=== PATIENT | female | born 1945 | race Caucasian/White ===

== ENCOUNTER 2022-03-16 13:16 | Inpatient (IN) | payer MEDICARE, OTHER ==
[~2022-03-16] VITALS: Ht 166.4 cm; Wt 95.5 kg
[~2022-03-16 13:16] MED LIST: ATOR20TA PO; LISI40TA13 PO; METF500T PO
[2022-03-16 14:42] LABS: BASOPHILS % (AUTO) 0.4 % (0-1); EOSINOPHILS % (AUTO) 0.1 % (0-6); HEMATOCRIT 38.6 % (35.0-45.0); MEAN CORPUSCULAR HEMOGLOBIN 30.4 PG (27.0-31.0); MEAN CORPUSCULAR HGB CONC 33.6 g/dL (33.0-36.5); MEAN CORPUSCULAR VOLUME 90.5 FL (78-98); MEAN PLATELET VOLUME 8.6 FL (7.4-10.4); MONOCYTES # (AUTO) 0.4 X10'3 (0-0.9); MONOCYTES % (AUTO) 8.5 % (2-12); NEUTROPHILS # (AUTO) 3.6 X10'3 (1.8-7.7); PLATELET COUNT 227 X10'3 (140-440); RED BLOOD COUNT 4.27 X10'6 (4.20-5.60); RED CELL DISTRIBUTION WIDTH 13.8 % (11.5-14.5)
[2022-03-16] MEDS ORDERED: dexamethasone sod phosphate 10mg/ml inj IV STA (14:48)
[2022-03-16] MEDS ORDERED: normal saline 1000ML IV soln IVB ONE (14:50)
[2022-03-16] MEDS ORDERED: ondansetron/PF 4mg/2ml inj IV ONE (14:50)
[2022-03-16] MEDS ORDERED: diazepam inj 5 MG/ML inj. IV ONE (14:50)
[2022-03-16 14:53] LABS: ALANINE AMINOTRANSFERASE 19 U/L (12-78); ALBUMIN 3.3 G/DL (3.4-5.0); ALBUMIN/GLOBULIN RATIO 0.8 (1.1-1.5); ALKALINE PHOSPHATASE 90 IU/L (46-116); ANION GAP 11 (8-16); ASPARTATE AMINO TRANSFERASE 21 U/L (10-37); BLOOD UREA NITROGEN 22 MG/DL (7-18); BUN/CREATININE RATIO 14.5 (6.6-38.0); CALCIUM 8.8 MG/DL (8.5-10.1); CHLORIDE 104 MMOL/L (99-107); CREATININE 1.52 MG/DL (0.40-0.90); GLUCOSE 170 MG/DL (70-104); POTASSIUM 3.8 MMOL/L (3.5-5.1); SODIUM 141 MMOL/L (135-145); TOTAL CARBON DIOXIDE 26.5 MMOL/L (24-32); TOTAL PROTEIN 7.3 G/DL (6.4-8.2); eGFR 33 ML/MIN
[2022-03-16 16:01] LABS: CLARITY,URINE CLEAR (Clear); COLOR,URINE YELLOW (Yellow); GLUCOSE, URINE NEGATIVE (Neg); KETONES,URINE NEGATIVE (Neg); LEUKOCYTE ESTERASE ,URINE NEGATIVE (Neg); NITRITES, URINE NEGATIVE (Neg); OCCULT BLOOD,URINE TRACE-LYSED (Neg); PROTEIN,URINE NEGATIVE (Neg); UROBILINOGEN,URINE 0.2 E.U/dL (0.2-1.0)
[2022-03-16 16:04] LABS: UA COLLECTION TYPE CLN CATCH MIDSTREAM
[2022-03-16] MEDS ORDERED: aspirin 81mg tab.chew PO ONE (16:10)
[2022-03-16 16:13] LABS: MUCUS STRANDS FEW /LPF (Neg); SQUAMOUS EPITHELIAL CELL,UR FEW /LPF (FEW)
[2022-03-16 16:16] LABS: BACTERIA,URINE FEW /HPF (Neg); RBC,URINE 0-2 /HPF (0-2); WBC,URINE 0-4 /HPF (0-4)
[2022-03-16] MEDS ORDERED: magnesium hydroxide 30ml (MOM) UD suspension PO PRN (16:30)
[2022-03-16] MEDS ORDERED: acetaminophen 325mg tablet PO PRN ×2 (16:30)
[2022-03-16] MEDS ORDERED: magnesium 4gm in 100ml NS 100 ML IV PRN (16:30)
[2022-03-16] MEDS ORDERED: magnesium 2GM in 50ml NS 50 ML IV PRN (16:30)
[2022-03-16] MEDS ORDERED: PERFLUTREN PROTEIN-A MICROSPHR (Optison) 0.22 MG/ML 3ML VIAL IV ONE (16:30)
[2022-03-16] MEDS ORDERED: HYDROcodone/acetaminophen 10/325mg tab PO PRN (16:30)
[2022-03-16] MEDS ORDERED: POTASSIUM BICARB 20meq eff tab 20 MEQ TABLET.EFF PO PRN ×2 (16:30)
[2022-03-16] MEDS ORDERED: bisacodyl 10mg suppository rectal RC PRN (16:30)
[2022-03-16] MEDS ORDERED: meclizine 12.5mg tablet PO PRN (16:30)
[2022-03-16] MEDS ORDERED: HYDROcodone/acetaminophen 5mg/325mg tablet PO PRN (16:30)
[2022-03-16] MEDS ORDERED: mag hydrox/Alum hydrox/simeth 30ml oral suspension PO PRN (16:30)
[2022-03-16] MEDS ORDERED: ondansetron/PF 4mg/2ml inj IV PRN (16:30)
[2022-03-16] MEDS ORDERED: potassium CL 10mEq/100ml bag 100 ML IV PRN (16:30)
[2022-03-16] MEDS ORDERED: acetaminophen 650mg rectal suppository RC PRN (16:30)
[2022-03-16] MEDS ORDERED: ondansetron 4mg rapidly disintigrating tab PO PRN (16:30)
--- NOTE | 2022-03-16 16:53 | NUR ---
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
[2022-03-16 17:04] LABS: HEMOGLOBIN A1C 7.6 % (4.5-6.2)
[2022-03-16 17:14] LABS: MAGNESIUM 1.4 MG/DL (1.5-2.4)
[2022-03-16] MEDS ORDERED: NO HOME MEDS (17:37)
[2022-03-16] MEDS: sodium chloride 0.45% 1,000 ML IV SCH (17:48)
[2022-03-16] MEDS: docusate sod 100mg capsule PO SCH (20:00)
[2022-03-16] MEDS: K and/or MAG REPLACEMENT MC SCH (20:00)
[2022-03-16] MEDS ORDERED: aminophylline 250mg/10ml inj. IV PRN (21:05)
[2022-03-16] MEDS ORDERED: regadenoson 0.4mg/5ml syringe IV PRN (21:05)
[2022-03-16] MEDS ORDERED: metoprolol tartrate 1mg/ml inj IV PRN (21:05)
[2022-03-16] MEDS ORDERED: nitroGLYCERIN 0.4mg SUBLingual tab SL PRN (21:05)
[2022-03-17] VITALS (11 sets, daily range): BP systolic 126–161; BP diastolic 63–93
[2022-03-17] MEDS: sodium chloride 0.45% 1,000 ML IV SCH ×2 (05:04→17:30)
[2022-03-17] MEDS: K and/or MAG REPLACEMENT MC SCH ×2 (08:00→20:00)
[2022-03-17] MEDS ORDERED: aspirin 81mg, enteric-coated 1 TAB TABLET.DR PO SCH (08:00)
[2022-03-17] MEDS: docusate sod 100mg capsule PO SCH ×2 (08:00→20:41)
[2022-03-17 09:00] LABS: BASOPHILS % (AUTO) 0.1 % (0-1); EOSINOPHILS % (AUTO) 0 % (0-6); HEMATOCRIT 36.5 % (35.0-45.0); HEMOGLOBIN 12.3 g/dl (12.0-16.0); LYMPHOCYTES # (AUTO) 0.9 X10'3 (1.1-4.8); LYMPHOCYTES % (AUTO) 19.9 % (21-51); MEAN CORPUSCULAR HEMOGLOBIN 30.6 PG (27.0-31.0); MEAN CORPUSCULAR HGB CONC 33.6 g/dL (33.0-36.5); MEAN PLATELET VOLUME 8.5 FL (7.4-10.4); MONOCYTES # (AUTO) 0.1 X10'3 (0-0.9); MONOCYTES % (AUTO) 3.3 % (2-12); NEUTROPHILS # (AUTO) 3.3 X10'3 (1.8-7.7); NEUTROPHILS % (AUTO) 76.7 % (42-75); PLATELET COUNT 209 X10'3 (140-440); RED BLOOD COUNT 4.02 X10'6 (4.20-5.60); RED CELL DISTRIBUTION WIDTH 13.7 % (11.5-14.5); WHITE BLOOD COUNT 4.4 X10'3 (4.5-11.0)
[2022-03-17 09:29] LABS: ALANINE AMINOTRANSFERASE 20 U/L (12-78); ALBUMIN 2.9 G/DL (3.4-5.0); ALBUMIN/GLOBULIN RATIO 0.7 (1.1-1.5); ALKALINE PHOSPHATASE 81 IU/L (46-116); ANION GAP 8 (8-16); ASPARTATE AMINO TRANSFERASE 20 U/L (10-37); BILIRUBIN,TOTAL 0.6 MG/DL (0.1-1.0); BLOOD UREA NITROGEN 24 MG/DL (7-18); BUN/CREATININE RATIO 17.8 (6.6-38.0); CALCIUM 8.8 MG/DL (8.5-10.1); CHLORIDE 105 MMOL/L (99-107); CHOLESTEROL 398 MG/DL (0-200); CREATININE 1.35 MG/DL (0.40-0.90); GLUCOSE 227 MG/DL (70-104); HDL CHOLESTEROL 50 MG/DL (35-60); MAGNESIUM 1.3 MG/DL (1.5-2.4); POTASSIUM 4.1 MMOL/L (3.5-5.1); SODIUM 139 MMOL/L (135-145); TOTAL CARBON DIOXIDE 26.3 MMOL/L (24-32); TRIGLYCERIDES 94 MG/DL (20-135); eGFR 38 ML/MIN
[2022-03-17 09:33] LABS: LDL CHOLESTEROL 315 MG/DL (50-100)
[2022-03-17] MEDS: magnesium Cl slow-release 64mg tablet PO PRN (12:46)
--- NOTE | 2022-03-17 13:02 | NUR ---
Patient in room ED 12. I have received report from Maria Elena TAYLOR in the ER and had the opportunity to ask questions.
[2022-03-17] MEDS ORDERED: acetylcysteine 200 MG/ml 4ml vial PO ONE (16:15)
[2022-03-17] MEDS: normal saline 1000ml 1,000 ML IV SCH (18:30)
--- NOTE | 2022-03-17 19:30 | NUR ---
Messaged pharmacy to send up insulin Addendum: 03/18/22 at 6800 by Sue Mora RN Medication not available for nutritional correction.
--- NOTE | 2022-03-17 20:00 | NUR ---
Informed Dr. Louis of pt A1c and latest BS checks. Permission order insulin per protocol.
[2022-03-17] MEDS: temazepam 15mg capsule PO PRN (20:41)
[2022-03-17] MEDS ORDERED: glucagon, human recombinant 1mg kit SUBCUT PRN (21:10)
[2022-03-17] MEDS ORDERED: insulin regular, human U-100 3ml vial - multi-dose SQ SCH (21:10)
[2022-03-17] MEDS ORDERED: DEXTROSE 15 GM of carb/4 tabs (each vial/BOTTLE has 4 tablets) PO PRN ×2 (21:10)
[2022-03-17] MEDS ORDERED: MESSAGE TO PHARMACY PO ONE (21:10)
[2022-03-17] MEDS ORDERED: dextrose 50%-water 50ml dispensing syringe IV PRN ×2 (21:10)
[2022-03-17] MEDS: insulin Lispro (HumaLOG) vial - multi-dose SQ SCH (22:43)
[2022-03-18] VITALS (14 sets, daily range): BP systolic 107–190; BP diastolic 43–97
[2022-03-18] MEDS: normal saline 1000ml 1,000 ML IV SCH ×3 (00:10→20:10)
[2022-03-18] MEDS: sodium chloride 0.45% 1,000 ML IV SCH (06:00)
--- NOTE | 2022-03-18 06:37 | NUR ---
Patient in room PCU 3028. I have received report from Sue TAYLOR and had the opportunity to ask questions and assume patient care.
[2022-03-18 07:04] LABS: BASOPHILS % (AUTO) 0.1 % (0-1); EOSINOPHILS % (AUTO) 0.3 % (0-6); HEMATOCRIT 34.9 % (35.0-45.0); HEMOGLOBIN 11.5 g/dl (12.0-16.0); LYMPHOCYTES # (AUTO) 1.8 X10'3 (1.1-4.8); LYMPHOCYTES % (AUTO) 17.6 % (21-51); MEAN CORPUSCULAR HEMOGLOBIN 30.2 PG (27.0-31.0); MEAN CORPUSCULAR VOLUME 91.4 FL (78-98); MEAN PLATELET VOLUME 8.8 FL (7.4-10.4); MONOCYTES # (AUTO) 0.8 X10'3 (0-0.9); MONOCYTES % (AUTO) 7.5 % (2-12); NEUTROPHILS # (AUTO) 7.5 X10'3 (1.8-7.7); NEUTROPHILS % (AUTO) 74.5 % (42-75); PLATELET COUNT 204 X10'3 (140-440); RED BLOOD COUNT 3.81 X10'6 (4.20-5.60); RED CELL DISTRIBUTION WIDTH 13.8 % (11.5-14.5); WHITE BLOOD COUNT 10.1 X10'3 (4.5-11.0)
[2022-03-18 07:17] LABS: ALANINE AMINOTRANSFERASE 19 U/L (12-78); ALBUMIN 2.8 G/DL (3.4-5.0); ALBUMIN/GLOBULIN RATIO 0.8 (1.1-1.5); ALKALINE PHOSPHATASE 73 IU/L (46-116); ANION GAP 5 (8-16); ASPARTATE AMINO TRANSFERASE 16 U/L (10-37); BILIRUBIN,TOTAL 0.6 MG/DL (0.1-1.0); BLOOD UREA NITROGEN 29 MG/DL (7-18); BUN/CREATININE RATIO 19.3 (6.6-38.0); CALCIUM 8.7 MG/DL (8.5-10.1); CHLORIDE 109 MMOL/L (99-107); GLUCOSE 108 MG/DL (70-104); MAGNESIUM 1.5 MG/DL (1.5-2.4); POTASSIUM 4.1 MMOL/L (3.5-5.1); SODIUM 142 MMOL/L (135-145); TOTAL CARBON DIOXIDE 27.8 MMOL/L (24-32); TOTAL PROTEIN 6.3 G/DL (6.4-8.2); eGFR 34 ML/MIN
[2022-03-18] MEDS ORDERED: nitroGLYCERIN-Tridil 50MG/D5W 250 ML IV ONE (07:37)
[2022-03-18] MEDS ORDERED: LIDOCAINE 1% w/preservative (10 MG/ML) inj. 10mL VIAL ONE (07:38)
[2022-03-18] MEDS ORDERED: heparin 1,000unit/ml 10ml vial 10 ML ONE (07:38)
[2022-03-18] MEDS ORDERED: verapamil 2.5 mg/ml inj IV ONE (07:38)
[2022-03-18] MEDS ORDERED: fentaNYL/PF 50MCG/1 ML 2ML syringe ONE (07:38)
[2022-03-18] MEDS ORDERED: iohexol 350 MG/1 ML 200ml bottle ONE ×2 (07:38→09:07)
[2022-03-18] MEDS ORDERED: midazolam 1 mg/ML 2ml injection ONE (07:38)
[2022-03-18] MEDS ORDERED: acetylcysteine 200 MG/ml 4ml vial PO ONE (08:00)
[2022-03-18] MEDS: K and/or MAG REPLACEMENT MC SCH ×2 (08:00→20:00)
[2022-03-18] MEDS ORDERED: heparin 25,000 UNIT/250ml bag 250 ML IV ONE (08:29)
[2022-03-18] MEDS ORDERED: heparin 1,000 UNITS/NS 500ml 500 ML ONE (08:53)
[2022-03-18] MEDS ORDERED: diphenhydrAMINE 50 mg/ml inj ONE (09:13)
[2022-03-18] MEDS ORDERED: atropine 0.1mg/ml 10ml syringe ONE (09:28)
[2022-03-18] MEDS ORDERED: clopidogrel 300mg tablet ONE (09:42)
--- NOTE | 2022-03-18 10:21 | NUR ---
Diabetes consult: Noted pt w/ hx of DM A1c 7.6 Written DM ed w/ RD contact info placed in pt chart Addendum: 03/18/22 at [address] Amended: Links added.
[2022-03-18] MEDS: docusate sod 100mg capsule PO SCH ×2 (11:01→20:13)
[2022-03-18] MEDS ORDERED: sodium bicarbonate (8.4%) inj. 150 MEQ in sodium chloride 0.45% 1,000 ML IV ONE (11:35)
[2022-03-18] MEDS ORDERED: ASPI-1071 PO (11:42)
[2022-03-18] MEDS ORDERED: CLOP75TA34 PO (11:42)
[2022-03-18] MEDS ORDERED: ROSU40TA PO (11:47)
[2022-03-18] MEDS ORDERED: COR3.125T PO (11:50)
[2022-03-18] MEDS ORDERED: OXAZEpam 15mg capsule PO PRN (12:00)
[2022-03-18] MEDS ORDERED: HYDROcodone/acetaminophen 10/325mg tab PO PRN (12:00)
[2022-03-18] MEDS ORDERED: cyclobenzaprine 10mg tablet PO PRN (12:05)
--- NOTE | 2022-03-18 13:54 | NUR ---
Paged Dr. Cook for dosing of hydralazine. PAGER ID: [phone] MESSAGE: [id number], Santi Pedroza. What dose of the hydralazine do you want me to give for a BP of 180/80? Lindsay U 3536.
[2022-03-18] MEDS ORDERED: hyDRALAzine 10mg tablet PO PRN (14:50)
--- NOTE | 2022-03-18 16:58 | NUR ---
Paged Dr. Cook regarding patients BP at 195/99 even after hydralazine, I asked her if there is something else I can give to help bring it down. PAGER ID: [phone] MESSAGE: [id number], Santi Pedroza. Pts BP is 195/99, I gave her the hydralazine almost 2 hours ago. She said she has a lot of pressure in her head. Is there something else I can give her to bring it down? Lindsay [facility] 6915.
--- NOTE | 2022-03-18 17:20 | NUR ---
Paged Dr. Cook asking for clarification on a BP medication. She said she wanted to order amlodipine but she ordered lisinopril. waiting for clarification. PAGER ID: [phone] MESSAGE: GustaboB, Santi Pedroza. I saw you ordered lisinopril, was that correct or did you want amlodipine? Lindsay U 9500.
[2022-03-18] MEDS: lisinopril 10 MG tablet PO SCH (17:37)
[2022-03-18] MEDS ORDERED: hydrALAZINE 20mg/ml inj. IV PRN (18:00)
[2022-03-18] MEDS ORDERED: carVEDilol 3.125mg tablet PO ONE (18:00)
[2022-03-18] MEDS: carVEDilol 3.125mg tablet PO SCH (20:00)
[2022-03-18] MEDS: temazepam 15mg capsule PO PRN (20:19)
[2022-03-18] MEDS ORDERED: insulin glargine (Lantus) pen - multi-dose SQ SCH (21:00)
--- NOTE | 2022-03-18 22:00 | NUR ---
Per RN judgement, held insulin. Pt had not eaten, BS 136.
--- NOTE | 2022-03-18 22:41 | NUR ---
Gabriella Smith. Kasia Hancock rm 3028-B had three stents placed today. Has a fever of 101.6. I gave Tylenol, ice packs, and cool cloths. Mickey dupree. BRANDON Rogers Addendum: 03/18/22 at 2308 by Sue Mora RN See new orders per
[2022-03-18] MEDS ORDERED: vancomycin/NS 1 GM ADD-VANTAGE 250 ML IV SCH (23:00)
[2022-03-19] MEDS ORDERED: carVEDilol 3.125mg tablet PO ONE
[2022-03-19 01:15] VITALS: BP 120/54
[2022-03-19] MEDS: insulin Lispro (HumaLOG) vial - multi-dose SQ SCH ×2 (05:39→09:22)
[2022-03-19 06:00] VITALS: BP 128/58
[2022-03-19] MEDS: normal saline 1000ml 1,000 ML IV SCH ×2 (06:10→16:10)
--- NOTE | 2022-03-19 06:34 | NUR ---
Problems reprioritized. Patient report given, questions answered & plan of care reviewed with Sue TAYLOR, patient stable at transfer of care.
--- NOTE | 2022-03-19 06:34 | NUR ---
Patient in room PCU 3028. I have received report from Sue TAYLOR and had the opportunity to ask questions and assume patient care.
[2022-03-19 07:43] LABS: EOSINOPHILS % (AUTO) 0.1 % (0-6); HEMOGLOBIN 11.7 g/dl (12.0-16.0); LYMPHOCYTES # (AUTO) 2.2 X10'3 (1.1-4.8); MONOCYTES # (AUTO) 1.1 X10'3 (0-0.9); MONOCYTES % (AUTO) 9.8 % (2-12); RED BLOOD COUNT 3.85 X10'6 (4.20-5.60)
[2022-03-19 07:47] LABS: BASOPHILS % (AUTO) 0.2 % (0-1); HEMATOCRIT 35.1 % (35.0-45.0); LYMPHOCYTES % (AUTO) 19.4 % (21-51); MEAN CORPUSCULAR HEMOGLOBIN 30.4 PG (27.0-31.0); MEAN CORPUSCULAR HGB CONC 33.4 g/dL (33.0-36.5); MEAN CORPUSCULAR VOLUME 91.1 FL (78-98); MEAN PLATELET VOLUME 9.3 FL (7.4-10.4); NEUTROPHILS # (AUTO) 8.2 X10'3 (1.8-7.7); NEUTROPHILS % (AUTO) 70.5 % (42-75); PLATELET COUNT 157 X10'3 (140-440); WHITE BLOOD COUNT 11.6 X10'3 (4.5-11.0)
[2022-03-19] MEDS: K and/or MAG REPLACEMENT MC SCH (08:00)
[2022-03-19] MEDS ORDERED: atorvastatin 20mg tablet PO SCH ×2 (08:00)
[2022-03-19] MEDS ORDERED: aspirin 81mg, enteric-coated 1 TAB TABLET.DR PO SCH (08:00)
[2022-03-19] MEDS ORDERED: clopidogrel 75mg tablet PO SCH ×2 (08:00)
[2022-03-19 08:11] LABS: ALANINE AMINOTRANSFERASE 16 U/L (12-78); ALBUMIN 2.7 G/DL (3.4-5.0); ALBUMIN/GLOBULIN RATIO 0.7 (1.1-1.5); ALKALINE PHOSPHATASE 83 IU/L (46-116); ANION GAP 10 (8-16); ASPARTATE AMINO TRANSFERASE 26 U/L (10-37); BILIRUBIN,TOTAL 1.9 MG/DL (0.1-1.0); BLOOD UREA NITROGEN 24 MG/DL (7-18); BUN/CREATININE RATIO 15.7 (6.6-38.0); CALCIUM 8.3 MG/DL (8.5-10.1); CHLORIDE 105 MMOL/L (99-107); CREATININE 1.53 MG/DL (0.40-0.90); GLUCOSE 154 MG/DL (70-104); MAGNESIUM 1.3 MG/DL (1.5-2.4); POTASSIUM 3.8 MMOL/L (3.5-5.1); SODIUM 141 MMOL/L (135-145); TOTAL CARBON DIOXIDE 25.9 MMOL/L (24-32); TOTAL PROTEIN 6.5 G/DL (6.4-8.2); eGFR 33 ML/MIN
[2022-03-19 09:03] VITALS: BP_SYST 125
[2022-03-19] MEDS: lisinopril 10 MG tablet PO SCH (09:03)
[2022-03-19] MEDS: carVEDilol 3.125mg tablet PO SCH (09:03)
[2022-03-19] MEDS: docusate sod 100mg capsule PO SCH (09:03)
[2022-03-19] MEDS: magnesium Cl slow-release 64mg tablet PO PRN (15:52)
--- NOTE | 2022-03-19 16:47 | NUR ---
Patient stable for discharge per Dr. Cook and Gerry. All discharge instructions reviewed with the patient and all questions answered. PIV discontinued, cannula intact. Tele DCd. All belongings collected and sent with patient. Wheeled to lobby via nursing staff and picked up by family member.
[2022-03-21] MEDS ORDERED: MESSAGE TO NURSING IV SCH (22:30)
== END 2022-03-19 16:32 | disposition home or self-care (01) | DRG 246 ==
LOC: ER 13:17 → ED HOLD 16:35 → PCU 3S 03-17 13:15
PROVIDERS: ADMIT Family Medicine; ATTEND Family Medicine
PROC: 4A02XM4 Measurement of Cardiac Total Activity, External Approach (ICD-10-PCS; 2022-03-17)
PROC: 3E033HZ Introduction of Radioactive Substance into Peripheral Vein, Percutaneous Approach (ICD-10-PCS; 2022-03-17)
PROC: 4A023N7 Measurement of Cardiac Sampling and Pressure, Left Heart, Percutaneous Approach (ICD-10-PCS; principal; 2022-03-18)
PROC: 027036Z Dilation of Coronary Artery, One Artery with Three Drug-eluting Intraluminal Devices, Percutaneous Approach (ICD-10-PCS; 2022-03-18)
PROC: B2111ZZ Fluoroscopy of Multiple Coronary Arteries using Low Osmolar Contrast (ICD-10-PCS; 2022-03-18)
PROC: B2151ZZ Fluoroscopy of Left Heart using Low Osmolar Contrast (ICD-10-PCS; 2022-03-18)
DX: I25.10 Atherosclerotic heart disease of native coronary artery without angina pectoris (principal); I21.A1 Myocardial infarction type 2; N17.9 Acute kidney failure, unspecified; E78.00 Pure hypercholesterolemia, unspecified; Z60.2 Problems related to living alone; R55 Syncope and collapse; I12.9 Hypertensive chronic kidney disease with stage 1 through stage 4 chronic kidney disease, or unspecified chronic kidney disease; E11.22 Type 2 diabetes mellitus with diabetic chronic kidney disease; N18.9 Chronic kidney disease, unspecified; E78.5 Hyperlipidemia, unspecified; G25.0 Essential tremor; Z82.49 Family history of ischemic heart disease and other diseases of the circulatory system; Z83.3 Family history of diabetes mellitus; Z91.14 Patient's other noncompliance with medication regimen
CPT/HCPCS: 93306; 93458; 99285; C9600; 36415; 70450; 70544; 70547; 76937; 78452; 80053; 80061; 81001; 82948; 83036; 83605; 83735; 84443; 84484; 85025; 85347; 87040; 93005; 93017; 93880; 97116; 97161; 97530; 97535; 99152; 99153; A4620; A5120; A9500; C1725; C1751; C1769; C1874; C1892; C1894; G0378; J0461; J1100; J1200; J1644; J1815; J2250; J2405; J2785; J3010; J3360; J3370; J3490; J7030; Q9967

== ENCOUNTER 2023-01-31 12:41 | Emergency (ER) | payer MEDICARE, OTHER ==
[~2023-01-31] VITALS: Ht 160 cm; Wt 90.9 kg
[~2023-01-31 12:41] MED LIST changes: +ASPI-1071 PO; -ATOR20TA PO; +CLOP75TA34 PO; +COR3.125T PO; -LISI40TA13 PO; -METF500T PO; +ROSU40TA PO
[2023-01-31 13:05] VITALS: BP 177/105
[2023-01-31] MEDS ORDERED: dexamethasone sod phosphate 10mg/ml inj IM STA (15:37)
[2023-01-31] MEDS ORDERED: LIDOcaine 5% patch TP STA (15:37)
[2023-01-31] MEDS ORDERED: traMADol 50MG tablet PO ONE (15:40)
[2023-01-31] MEDS ORDERED: TRAM50TA2 PO (16:55)
[2023-01-31] MEDS ORDERED: BACL5TAB PO (16:55)
== END 2023-01-31 17:08 | disposition home or self-care (01) ==
LOC: ER 12:42
DX: M43.6 Torticollis (principal); E78.00 Pure hypercholesterolemia, unspecified; I10 Essential (primary) hypertension; E11.9 Type 2 diabetes mellitus without complications
CPT/HCPCS: 72040; 96372; 99283; J1100

== ENCOUNTER → 2023-10-16 | Emergency (ER) | payer MEDICARE, OTHER ==
[~2023-10-16] VITALS: Ht 165.1 cm; Wt 88.1 kg
[~2023-10-16] MED LIST changes: +BACL5TAB PO; +TRAM50TA2 PO
[2023-10-16 15:04] VITALS: BP 118/68; PULSE 84; RESP 16; TEMP 97.8; O2SAT 98
== END | disposition home or self-care (01) ==
LOC: ER 12:53
DX: M25.562 Pain in left knee (principal); W19.XXXA Unspecified fall, initial encounter; Y93.89 Activity, other specified; Y92.89 Other specified places as the place of occurrence of the external cause; Y99.8 Other external cause status; M17.12 Unilateral primary osteoarthritis, left knee
CPT/HCPCS: 73560; 99283

== ENCOUNTER 2024-07-25 18:48 | Emergency (ER) | payer MEDICARE ==
[~2024-07-25] VITALS: Ht 165.1 cm; Wt 76.4 kg
[~2024-07-25 18:48] MED LIST changes: +AMIO200T67 PO; +APIX5TAB3 PO; -BACL5TAB PO; +CARV6.253 PO; -COR3.125T PO; +DULO-31 PO; +EMPA25TA PO; +LISI10TA27 PO; +PRIM50TA5 PO; -TRAM50TA2 PO
[2024-07-25] MEDS: bisacodyl 10mg suppository rectal RC STA (19:59)
[2024-07-25 21:05] LABS: BASOPHILS % (AUTO) 0.8 % (0-1); EOSINOPHILS # (AUTO) 0.1 X10'3 (0-0.9); EOSINOPHILS % (AUTO) 1.9 % (0-6); HEMATOCRIT 31.5 % (35.0-45.0); HEMOGLOBIN 10.2 g/dl (12.0-16.0); LYMPHOCYTES # (AUTO) 1.7 X10'3 (1.1-4.8); LYMPHOCYTES % (AUTO) 27.1 % (21-51); MEAN CORPUSCULAR HEMOGLOBIN 29.9 PG (27.0-31.0); MEAN CORPUSCULAR HGB CONC 32.4 g/dL (33.0-36.5); MEAN CORPUSCULAR VOLUME 92.4 FL (78-98); MEAN PLATELET VOLUME 8.5 FL (7.4-10.4); MONOCYTES # (AUTO) 0.6 X10'3 (0-0.9); MONOCYTES % (AUTO) 8.9 % (2-12); NEUTROPHILS # (AUTO) 3.8 X10'3 (1.8-7.7); NEUTROPHILS % (AUTO) 61.3 % (42-75); PLATELET COUNT 196 X10'3 (140-440); RED BLOOD COUNT 3.41 X10'6 (4.20-5.60); RED CELL DISTRIBUTION WIDTH 16.3 % (11.5-14.5); WHITE BLOOD COUNT 6.2 X10'3 (4.5-11.0)
[2024-07-25 21:19] LABS: ALANINE AMINOTRANSFERASE 17 U/L (12-78); ALBUMIN 3.2 G/DL (3.4-5.0); ALKALINE PHOSPHATASE 63 IU/L (46-116); ANION GAP 11 (8-16); ASPARTATE AMINO TRANSFERASE 16 U/L (10-37); BILIRUBIN,TOTAL 0.4 MG/DL (0.1-1.0); BLOOD UREA NITROGEN 56 MG/DL (7-18); BUN/CREATININE RATIO 22.3 (10.0-20.0); CALCIUM 9.3 MG/DL (8.5-10.1); CHLORIDE 104 MMOL/L (99-107); CREATININE 2.51 MG/DL (0.40-0.90); GLUCOSE 127 MG/DL (70-104); POTASSIUM 4.7 MMOL/L (3.5-5.1); SODIUM 138 MMOL/L (135-145); TOTAL CARBON DIOXIDE 23.1 MMOL/L (24-32); TOTAL PROTEIN 6.5 G/DL (6.4-8.2); eCRCL 17 ML/MIN; eGFR 19 ML/MIN
[2024-07-25] MEDS: HYDROmorphone inj. 0.5 MG/0.5 ML DISP.SYRIN IV ONE (21:47)
[2024-07-25] MEDS: ondansetron/PF 4mg/2ml inj IV ONE (23:20)
[2024-07-26] MEDS: mineral oil 133ml enema RC PRN (01:15)
[2024-07-26 02:30] VITALS: O2SAT 97
[2024-07-26] MEDS ORDERED: DOCU-148 PO (02:53)
[2024-07-26] MEDS ORDERED: BISA10SU60 RC (02:53)
[2024-07-26] MEDS: normal saline 1000ml 1,000 ML IV ONE (04:34)
[2024-07-26 04:44] VITALS: BP 130/95; PULSE 86; RESP 16; TEMP 98.7
== END 2024-07-26 04:46 | disposition home or self-care (01) ==
LOC: ER 18:49
DX: K59.00 Constipation, unspecified (principal); I25.10 Atherosclerotic heart disease of native coronary artery without angina pectoris; E78.00 Pure hypercholesterolemia, unspecified; I10 Essential (primary) hypertension; E11.9 Type 2 diabetes mellitus without complications; Z79.899 Other long term (current) drug therapy; Z79.82 Long term (current) use of aspirin
CPT/HCPCS: 36415; 74022; 80053; 82948; 85025; 96374; 96375; 99285; J1170; J2405; J7030

== ENCOUNTER 2024-07-28 06:57 | Day surgery (SDC) | payer MEDICARE ==
[2024-07-27 12:19] LABS: BASOPHILS % (AUTO) 0.3 % (0-1); EOSINOPHILS # (AUTO) 0.1 X10'3 (0-0.9); EOSINOPHILS % (AUTO) 0.7 % (0-6); HEMATOCRIT 30.6 % (35.0-45.0); HEMOGLOBIN 10.1 g/dl (12.0-16.0); LYMPHOCYTES # (AUTO) 1.6 X10'3 (1.1-4.8); MEAN CORPUSCULAR HEMOGLOBIN 30.3 PG (27.0-31.0); MEAN CORPUSCULAR HGB CONC 33.1 g/dL (33.0-36.5); MEAN CORPUSCULAR VOLUME 91.6 FL (78-98); MEAN PLATELET VOLUME 8.8 FL (7.4-10.4); MONOCYTES # (AUTO) 0.7 X10'3 (0-0.9); MONOCYTES % (AUTO) 6.9 % (2-12); NEUTROPHILS # (AUTO) 7.7 X10'3 (1.8-7.7); NEUTROPHILS % (AUTO) 76.1 % (42-75); PLATELET COUNT 207 X10'3 (140-440); RED BLOOD COUNT 3.34 X10'6 (4.20-5.60); RED CELL DISTRIBUTION WIDTH 16.3 % (11.5-14.5); WHITE BLOOD COUNT 10.1 X10'3 (4.5-11.0)
[2024-07-27 12:36] LABS: ALBUMIN 2.8 G/DL (3.4-5.0); ANION GAP 8 (8-16); BLOOD UREA NITROGEN 47 MG/DL (7-18); BUN/CREATININE RATIO 21.4 (10.0-20.0); CALCIUM 9.3 MG/DL (8.5-10.1); CHLORIDE 104 MMOL/L (99-107); GLUCOSE 178 MG/DL (70-104); POTASSIUM 4.3 MMOL/L (3.5-5.1); SODIUM 135 MMOL/L (135-145); TOTAL CARBON DIOXIDE 23.5 MMOL/L (24-32); eGFR 22 ML/MIN
[2024-07-27 12:37] LABS: INR 1.2 INR; PROTHROMBIN TIME 12.4 SECONDS (9.0-12.0)
[2024-07-28] VITALS (17 sets, daily range): BP systolic 93–130; BP diastolic 50–81; PULSE 49–92; RESP 7–20; TEMP 98.1; O2SAT 95–100
[~2024-07-28] VITALS: Ht 152.4 cm; Wt 77.7 kg
[~2024-07-28 06:57] MED LIST changes: +BISA10SU60 RC; +DOCU-148 PO
[2024-07-28] MEDS ORDERED: LORazepam 0.5 MG tablet PO ONE (07:30)
[2024-07-28] MEDS ORDERED: atropine 0.1mg/ml 10ml syringe IV ONE (07:30)
[2024-07-28] MEDS ORDERED: amiodarone 150mg/dext, iso-os 100 ML IV ONE (07:30)
[2024-07-28] MEDS ORDERED: diphenhydrAMINE 25mg capsule PO ONE (07:30)
[2024-07-28] MEDS ORDERED: PRIM50TA5 PO (08:13)
[2024-07-28] MEDS ORDERED: BIOT1CAP3 PO (08:13)
[2024-07-28] MEDS ORDERED: HYDR25TA5 PO (08:13)
[2024-07-28] MEDS ORDERED: ROSU40TA71 PO (08:13)
[2024-07-28] MEDS ORDERED: APIX5TAB3 PO (08:13)
[2024-07-28] MEDS ORDERED: TURM500C4 PO (08:13)
[2024-07-28] MEDS ORDERED: EMPA25TA PO (08:13)
[2024-07-28] MEDS ORDERED: AMI200T PO (08:13)
[2024-07-28] MEDS ORDERED: LISI10TA27 PO (08:13)
[2024-07-28] MEDS ORDERED: CLOP75TA33 PO (08:13)
[2024-07-28] MEDS ORDERED: ONDA-103 SL (08:13)
[2024-07-28] MEDS ORDERED: MULT-378 PO (08:13)
[2024-07-28] MEDS ORDERED: CARV6.2513 PO (08:38)
[2024-07-28] MEDS ORDERED: pneumococcal 23-VAL P-sac vacc 25 mcg/0.5ml vial IMVAC ONE (09:40)
[2024-07-28] MEDS: normal saline 1000ml 1,000 ML IV SCH (09:50)
[2024-07-28] MEDS: MIDAZolam 1mg/ml 10ml vial IV ONE (09:51)
[2024-07-28] MEDS: morphine 10mg/ml inj. IV ONE (09:51)
== END 2024-07-28 11:30 | disposition home or self-care (01) ==
LOC: SSTAY O 06:57
PROVIDERS: ATTEND Internal Medicine Cardiovascular Disease
DX: I48.0 Paroxysmal atrial fibrillation (principal); I10 Essential (primary) hypertension; I25.10 Atherosclerotic heart disease of native coronary artery without angina pectoris; E11.9 Type 2 diabetes mellitus without complications; E78.5 Hyperlipidemia, unspecified; G47.33 Obstructive sleep apnea (adult) (pediatric); Z79.01 Long term (current) use of anticoagulants; Z79.02 Long term (current) use of antithrombotics/antiplatelets; Z79.899 Other long term (current) drug therapy; Z23 Encounter for immunization; Z98.51 Tubal ligation status; Z95.5 Presence of coronary angioplasty implant and graft; Z82.49 Family history of ischemic heart disease and other diseases of the circulatory system
CPT/HCPCS: 36415; 80048; 82948; 85025; 85610; 90471; 90732; 92960; 93005; J2250; J2270; J7030; J2274

== ENCOUNTER 2025-01-22 15:31 | Emergency (ER) | payer MEDICARE ==
[~2025-01-22] VITALS: Ht 165.1 cm; Wt 68.0 kg
[~2025-01-22 15:31] MED LIST changes: +AMI200T PO; -AMIO200T67 PO; -ASPI-1071 PO; +BIOT1CAP3 PO; -BISA10SU60 RC; -CARV6.253 PO; +CLOP75TA33 PO; -CLOP75TA34 PO; -DOCU-148 PO; +HYDR25TA5 PO; +MULT-378 PO; +ONDA-103 SL; -ROSU40TA PO; +ROSU40TA89 PO; +TURM500C4 PO; +[UNRECOGNIZED DRUG - CODE] PO
[2025-01-22 16:33] LABS: BASOPHILS % (AUTO) 0.6 % (0-1); EOSINOPHILS # (AUTO) 0.2 X10'3 (0-0.9); EOSINOPHILS % (AUTO) 2.8 % (0-6); HEMATOCRIT 33.5 % (35.0-45.0); HEMOGLOBIN 10.7 g/dl (12.0-16.0); LYMPHOCYTES # (AUTO) 1.3 X10'3 (1.1-4.8); LYMPHOCYTES % (AUTO) 16.8 % (21-51); MEAN CORPUSCULAR HEMOGLOBIN 28.8 PG (27.0-31.0); MEAN CORPUSCULAR HGB CONC 31.9 g/dL (33.0-36.5); MEAN CORPUSCULAR VOLUME 90.4 FL (78-98); MEAN PLATELET VOLUME 8.3 FL (7.4-10.4); MONOCYTES # (AUTO) 0.6 X10'3 (0-0.9); MONOCYTES % (AUTO) 7.8 % (2-12); NEUTROPHILS # (AUTO) 5.4 X10'3 (1.8-7.7); PLATELET COUNT 321 X10'3 (140-440); RED CELL DISTRIBUTION WIDTH 14.9 % (11.5-14.5); WHITE BLOOD COUNT 7.6 X10'3 (4.5-11.0)
[2025-01-22 16:48] LABS: APTT 30 SECONDS (22-32); INR 1.1 INR; PROTHROMBIN TIME 11.3 SECONDS (9.0-12.0)
[2025-01-22 16:54] LABS: ALANINE AMINOTRANSFERASE 21 U/L (12-78); ALBUMIN 3.3 G/DL (3.4-5.0); ALBUMIN/GLOBULIN RATIO 0.7 (1.1-1.5); ALKALINE PHOSPHATASE 93 IU/L (46-116); ANION GAP 9 (8-16); ASPARTATE AMINO TRANSFERASE 20 U/L (10-37); BILIRUBIN,TOTAL 0.4 MG/DL (0.1-1.0); BLOOD UREA NITROGEN 36 MG/DL (7-18); CALCIUM 9.3 MG/DL (8.5-10.1); CHLORIDE 106 MMOL/L (99-107); GLUCOSE 187 MG/DL (70-104); POTASSIUM 3.7 MMOL/L (3.5-5.1); SODIUM 142 MMOL/L (135-145); TOTAL CARBON DIOXIDE 27.3 MMOL/L (24-32); eCRCL 24 ML/MIN; eGFR 27 ML/MIN
[2025-01-22 16:59] LABS: PRO BRAIN NATRIURETIC PEPTIDE 1071 PG/ML (0-450); THYROID STIMULATING HORMONE 2.46 ulU/ml (0.34-4.50)
[2025-01-22 17:54] LABS: BILIRUBIN,URINE NEGATIVE (Neg); CLARITY,URINE CLEAR (Clear); COLOR,URINE YELLOW (Yellow); GLUCOSE, URINE >=1000 mg/dl (Neg); KETONES,URINE NEGATIVE (Neg); LEUKOCYTE ESTERASE ,URINE NEGATIVE (Neg); NITRITES, URINE NEGATIVE (Neg); OCCULT BLOOD,URINE SMALL (Neg); PROTEIN,URINE TRACE mg/dl (Neg); UROBILINOGEN,URINE 0.2 E.U/dL (0.2-1.0)
[2025-01-22 17:59] LABS: UA COLLECTION TYPE CLN CATCH MIDSTREAM
[2025-01-22 18:08] LABS: BACTERIA,URINE FEW /HPF (Neg); MUCUS STRANDS FEW /LPF (Neg); SQUAMOUS EPITHELIAL CELL,UR FEW /LPF (FEW); WBC,URINE 0-4 /HPF (0-4)
[2025-01-22] MEDS: LIDOcaine 1% W/epiNEPHrine 1:100,000 20ml vial SQ ONE (20:37)
[2025-01-22] MEDS ORDERED: AMOX-580 PO (21:20)
[2025-01-22] MEDS: CefTRIAXone 1000mg IM Kit (w/lidocaine diluent) IM ONE (21:33)
[2025-01-22 21:41] VITALS: BP 146/63; PULSE 77; RESP 16; TEMP 98.6; O2SAT 97
== END 2025-01-22 21:44 | disposition home or self-care (01) ==
LOC: ER 15:32
DX: E04.9 Nontoxic goiter, unspecified (principal); I25.10 Atherosclerotic heart disease of native coronary artery without angina pectoris; I10 Essential (primary) hypertension; E11.9 Type 2 diabetes mellitus without complications; E78.00 Pure hypercholesterolemia, unspecified; Z95.0 Presence of cardiac pacemaker
CPT/HCPCS: 36415; 70490; 71045; 76536; 80053; 81001; 83880; 84443; 84484; 85025; 85610; 85730; 93005; 96372; 99285; J0696

== ENCOUNTER 2025-06-16 08:26 | Emergency (ER) | payer MEDICARE ==
[~2025-06-16] VITALS: Ht 165.1 cm; Wt 67.0 kg
[~2025-06-16 08:26] MED LIST changes: -AMI200T PO; +APIX2.5T PO; -APIX5TAB3 PO; -BIOT1CAP3 PO; -CLOP75TA33 PO; +FERR324T4 PO; +FURO-150 PO; -HYDR25TA5 PO; -LISI10TA27 PO; +METO50TA16 PO; -MULT-378 PO; +PANT40TA54 PO; +POTA-207 PO; -TURM500C4 PO; -[UNRECOGNIZED DRUG - CODE] PO
--- NOTE | 2025-06-16 09:18 | ELECTROCARDIOGRAPH REPORT ---
[facility] Test Date: 2025-06-16 Test Time: 09:17:06 Pat Name: DANIELLE OBREGON Department: EMERGENCY ROOM Patient ID: [id number] Room: Gender: F Axle Turner: ANAYA : 1945 Requested By: FRANKLIN RICHTER Order Number: [id number] Reading MD: Dr. Franklin Richter Measurements Intervals [place] Rate: 80 P: 0 [place]: 0 QRS: 23 QRSD: 82 T: 43 QT: 415 QTc: 479 Interpretive Statements Atrial fibrillation Electronically Signed On 06-16-2025 9:40:[address] Franklin Richter Please click the below link to view image of tracing.
--- NOTE | 2025-06-16 10:03 | RADIOLOGY REPORT ---
Exam: CT CT ABDOMEN PELVIS History: ABD PAIN COMPARISON: CT CT ABDOMEN PELVIS on DOS: 02/27/25, CT CT NECK SOFT TISSUES on DOS: 01/22/25, DI ACUTE A BDOMEN on DOS: 07/25/24 Technique: Multidetector spiral CT of the abdomen and pelvis was performed from lung bases to pubic s ymphysis. Intravenous contrast was administered during this examination. Portal venous imaging was o btained. Axial, coronal and sagittal multiplanar reformats were performed by the technologist on a [employer] workstation. Radiation Dose : 1. Abdomen/Pelvis: CTDIvol 11.8mGy, DLP 574.2 mGy*cm. Findings: Lung Bases: No acute or significant lung base finding. Normal heart size. No pleural or pericardial effusion. Liver: The liver is normal in size. No focal lesions. Normal hepatic vascular enhancement. Gallbladder and Biliary Tree: Unremarkable Spleen: Unremarkable Pancreas: The pancreas is normal in appearance without focal lesions or abnormal enhancement. Adrenal Glands: Unremarkable Kidneys: No hydronephrosis. Bladder: Unremarkable Bowel: The stomach is grossly normal in appearance. Moderate volume colonic stool. The appendix is no t visualized; however, no secondary findings of acute appendicitis identified. Ascites: Absent Lymphadenopathy: No mesenteric, retroperitoneal or periportal lymphadenopathy. Abdominal Wall and Mesentery: Unremarkable. Vasculature: The visualized abdominal aorta is normal in size and caliber. There is calcified atheros clerotic plaque involving the aorta and its branches. Abdominal and pelvic vessels demonstrate normal enhancement. Pelvic Organs: Unremarkable Musculoskeletal: No aggressive focal bony lesions, acute fractures or dislocation. Multilevel degener ative changes of the spine. Degenerative changes of bilateral hips. IMPRESSION: Moderate volume colonic stool. Otherwise, no acute findings.
[2025-06-16 10:31] LABS: LEUKOCYTE ESTERASE ,URINE NEGATIVE (Neg); NITRITES, URINE NEGATIVE (Neg); OCCULT BLOOD,URINE SMALL (Neg)
[2025-06-16 10:34] LABS: UA COLLECTION TYPE CLN CATCH MIDSTREAM
[2025-06-16 10:36] LABS: SQUAMOUS EPITHELIAL CELL,UR FEW /LPF (FEW)
[2025-06-16 10:39] LABS: MEAN PLATELET VOLUME 7.9 FL (7.4-10.4); RED CELL DISTRIBUTION WIDTH 18.9 % (11.5-14.5)
[2025-06-16 11:02] LABS: ELLIPTOCYTES FEW; PLATELET ESTIMATE NORMAL
[2025-06-16 11:32] LABS: CREATININE 1.78 MG/DL (0.40-0.90); TOTAL CARBON DIOXIDE 24.5 MMOL/L (24-32); eCRCL 23 ML/MIN; eGFR 28 ML/MIN
--- NOTE | 2025-06-16 14:17 | Physician Documentation ---
History of Present Illness Chief Complaint: Flank Pain Stated Complaint: KIDNEY PAIN Time Seen by MD: 08:59 OK to notify your PCP?: Yes Primary Medical Doctor: Horacio Singer NP Source: patient, RN/, RN notes reviewed, old records Mode of Arrival: Ambulatory Exam Limitations: no limitations HPI This pleasant female has a history of heart failure renal insufficiency frequently has positive troponins and pretty significant mitral valve regurgitation. Patient is on a watch list for TAVR. She recently fell this week and was seen and worked up in [facility] in the ER for her pain. She states at times she has a little bit nauseated still having severe pain in the left flank. She denies dysuria or frequency. No dysuria or hematuria. Patient denies any shortness of breath no clicks or pops when she is breathing movement makes it worse. She has not taken any pain medications family's concerned because she has been falling. She has no chest pain except her rib pain mostly with movement palpation and breathing. She denies any other complaints such as infection fevers or chills. She is now here for evaluation. Patient was asking questions about an electric scooter Medication Reconciliation Allergies: Coded Allergies: No Known Allergies (Unverified , 05/26/25) Scheduled Apixaban (Eliquis), 2.5 MG PO BID Duloxetine HCl (Cymbalta), 1 CAP PO DAILY, (Reported) Empagliflozin (Jardiance), 1 TAB PO DAILY, (Reported) Ferrous Sulfate (Ferrous Sulfate), 1 TAB PO Q12H Furosemide* (Lasix*), 1 TAB PO BID Metoprolol Tartrate (Metoprolol Tartrate), 25 MG PO BID Pantoprazole Sodium (Pantoprazole Sodium), 1 TAB PO BID Potassium Chloride* (K-Dur*), 1 TAB PO DAILY Primidone (Mysoline), 0.5 TAB PO DAILY, (Reported) Rosuvastatin Calcium (Rosuvastatin Calcium), 1 TAB PO DAILY, (Reported) Scheduled PRN Ondansetron HCl (Ondansetron HCl), 1 TAB SL DAILY PRN for nausea/vomiting, (Reported) Past Medical History Past Medical History: No Pertinent History, Coronary Artery Disease, High Cholesterol, Hypertension, Myocardial Infarction, Diabetes Past Surgical History: noncontributory Patient History: (CAD) Coronary arteriosclerosis FATHER, , Age: 70, Cause: Coma MOTHER, , Age: 91, Cause: Old age sibling, , Age: 61 (DM Type 2) Diabetes mellitus type 2 FATHER, , Age: 70, Cause: Coma Benign essential tremor FATHER, , Age: 70, Cause: Coma Pacemaker sibling Alcohol Use: None Drug Use: none Review of Systems All Other Systems at this time: Reviewed and Negative Physical Exam Vital Signs: RN Vital Signs have been reviewed: Yes, Temperature: 97.2, Source: Temporal, Heart Rate: 92, Respiratory Rate: 12, BP: 143/93, Pulse Oximetry: 99, Weight: 67.000 Oxygen Flow Rate: 0 Physical Exam General: The patient is well developed, well nourished, nontoxic appearing and is in no acute distress. Skin: [place], warm and dry with no rashes. HEENT: Head was normocephalic and atraumatic. Eyes - pupils equal, round, reactive to light and accommodation. Extraocular movements were intact. Conjunctivae were nonicteric. The mouth and oropharynx were clear with moist mucous membranes. Neck: Supple and nontender. There was no jugular venous distention, lym phadenopathy, Chest: Clear to auscultation bilaterally without wheezes, rales or rhonchi. No accessory muscle use. Left lower anterior wall and left axillary wall tenderness to palpation. No clicks pops or rubs Heart: Rate regular and rhythmic. S1, S2. 4+ systolic ejection murmurs. Palpation of the chest wall was normal. No rubs or thrills. Abdomen: Soft, nontender and nondistended. Positive bowel sounds. No guarding or rebound. No hepatosplenomegaly or palpable masses. Extremities: No cyanosis, clubbing The patient moves all extremities. Pulses were equal and symmetric. Bruising noted multiple locations of body. Trace edema bilaterally slightly greater on the left than the right Neurologic: Motor sensory grossly intact Psychologic: The patient was oriented to person, place and time. The patient demonstrated appropriate judgement and insight. Progress Results/Orders Reviewed/noted all lab results: Yes Results/Orders Orders - FRANKLIN PEDROZA MD Ct Abdomen Pelvis (06/16/25 08:58) Electrocardiogram (06/16/25 09:12) Completed Orders - FRANKLIN PEDROZA MD MG (06/16/25 08:58) Ct Abdomen Pelvis (06/16/25 08:58) BMP (06/16/25 08:58) Electrocardiogram (06/16/25 09:12) Hs Troponin I W Calculations (06/16/25 09:12) Hs Troponin I W Calculations (06/16/25 11:12) Cbc/Diff (06/16/25 10:24) Ua W/Microscopic, Cult If Ind (06/16/25 10:16) Vital Signs 06/16/25 06/16/25 06/16/25 06/16/25 08:36 09:06 09:14 09:30 Temp 97.2 Pulse 74 72 95 Resp 16 18 18 B/P (MAP) 126/76 117/81 (93) 140/95 (110) Pulse Ox 99 100 100 O2 Flow Rate 0 0 0 06/16/25 06/16/25 06/16/25 06/16/25 10:30 11:25 12:25 13:18 Pulse 94 88 82 92 Resp 20 21 20 12 B/P (MAP) 140/95 (110) 143/100 (114) 135/90 (105) 143/93 (110) Pulse Ox 97 98 98 99 O2 Flow Rate 0 0 0 0 Laboratory Tests Test 06/16/25 10:08 06/16/25 10:16 06/16/25 10:30 06/16/25 11:30 CBC Comment Urine Specimen Description Cln catch midstream Urine Color Yellow Urine Clarity Clear Urine pH 6.0 Urine Specific [place] 1.010 Urine Protein Negative Urine Glucose (UA) >=1000 H Urine Ketones Negative Urine Occult Blood Small Urine Nitrite Negative Urine Bilirubin Negative Urine Urobilinogen 0.2 Urine Leukocyte Esterase Negative Urine RBC 3-10 Urine WBC 0-4 Urine Squamous Epithelial Cells Few Urine Bacteria Few Urine Culture Indicated Not ind Volume Urine Centrifuged 10 ml Urine Comment White Blood Count 7.2 Red Blood Count 4.09 L Hemoglobin 11.7 L Hematocrit 35.8 Mean Corpuscular Volume 87.6 Mean Corpuscular Hemoglobin 28.6 Mean Corpuscular Hemoglobin Concent 32.6 L Red Cell Distribution Width 18.9 H Platelet Count 234 Mean Platelet Volume 7.9 Neutrophils (%) (Auto) 66.7 Lymphocytes (%) (Auto) 22.5 Monocytes (%) (Auto) 9.2 Eosinophils (%) (Auto) 1.1 Basophils (%) (Auto) 0.5 Neutrophils # (Auto) 4.8 Lymphocytes # (Auto) 1.6 Monocytes # (Auto) 0.7 Eosinophils # (Auto) 0.1 Basophils # (Auto) 0.0 Platelet Estimate Normal Red Blood Cell Morphology Perf Basophilic Stippling Anisocytosis 2+ Tear Drop Cells Few Elliptocytes Few Sodium Level 141 Potassium Level 3.9 Chloride Level 105 Carbon Dioxide Level 24.5 Anion Gap 12 Blood Urea Nitrogen 43 H Creatinine 1.78 H Estimated GFR/1.73 m2 28 BUN/Creatinine Ratio 24.2 H Glucose Level 113 H Calcium Level 9.7 Magnesium Level 2.2 Troponin I High Sensitivity 54 *H Albumin 3.3 L Chemistry Comments Glucometer 98 Test 06/16/25 11:31 Troponin I High Sensitivity 52 *H Re-Evaluation Re-Evaluation : Progress Patient was last seen on 05/21 5727 for 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 Patient had some positive troponins. Patient also has a history of CVA back in 2023 patient's last ventricular ejection fraction was 60- 65% with three to 4+ mitral regurgitation. Patient had a consultation by Dr. Santacruz and was diuresed which resulted in improved kidney function. 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 Roman Patient was evaluated seems to be having musculoskeletal rib contusion. Tylenol Motrin was given after a negative cardiac workup patient was then discharged home. She has not taken medications at home would benefit from Tylenol Motrin. She can follow up with her primary care physician for scooters and other devices. Patient's laboratory work was reassuring CBC showed no leukocytosis anemia or abnormalities. Patient had positive troponins at 54 and 52 but that is her baseline her renal functions are actually improved from baseline with a BUN of 43 and a creatinine of 1.78. Urinalysis is also reassuring. After receiving Tylenol Motrin patient was then discharged home. Continuous display artist interpretation shows normal sinus rhythm heart rate 80s, no ectopy, normal, my interpretation. Pulse oximetry monitor interpretation shows normal oxygenation at 99% room air, normal, my interpretation. EKG/XRAY/CT/US/VASC/MRI EKG : Intepreting Monitor?: Yes Additional Comment Ordering Physician: FRANKLIN PEDROZA MD Exam Name: ELECTROCARDIOGRAM Technologist: [facility] Test Date: 2025-06-16 Test Time: 09:17:06 Pat Name: DANIELLE OBREGON Department: EMERGENCY ROOM Room: Gender: F [employer] Driver: ANAYA : 1945 Requested By: FRANKLIN PEDROZA Order Number: [id number] Donny MD: Dr. Franklin Pedroza Measurements Intervals [place] Rate: 80 P: 0 [place]: 0 QRS: 23 QRSD: 82 T: 43 QT: 415 QTc: 479 Interpretive Statements Atrial fibrillation Electronically Signed On 06-16-2025 9:40:[address] Franklin Pedroza Please click the below link to view image of tracing. Medical Decision Making Additional info obtained from: old records Differential Dx:Considerations: Include: Appendicitis, Bowel obstruction, Cholangitis, Cholelithasis, Constipation, Diverticular disease, Esophagitis, Gastritis/PUD, Gastroenteritis, GI hemorrhage, Hernia, Hepatitis, Inflammatory BD, Ischemic bowel, Pancreatitis, PID, Urinary tract infection, Other Departure Disposition: HOME / SELF CARE / HOMELESS Impression: Primary Impression: Fall Qualified Codes: W19.XXXA - Unspecified fall, initial encounter Additional Impression: Contusion of rib on left side Qualified Codes: S29.8XXA - Other specified injuries of thorax, initial encounter Condition: Stable Discharge Instructions: Chest Contusion, Adult, Snow-cd-Asbt Referrals: NO PRIMARY CARE PROVIDER (PCP) Education Educated: Patient Educated regarding: diagnosis, need for follow up Signature Scribe Signature: , Attestation: The note accurately reflects work and decisions made by me.Franklin Pedroza MD 06/16/25 15:08 FRANKLIN PEDROZA MD Jun 16, 2025 14:17
[2025-06-16 18:14] VITALS: BP 126/85; PULSE 84; RESP 20; TEMP 97.2; O2SAT 98
== END 2025-06-16 15:20 | disposition home or self-care (01) ==
LOC: ER 08:27
DX: S20.212A Contusion of left front wall of thorax, initial encounter (principal); R11.0 Nausea; I25.10 Atherosclerotic heart disease of native coronary artery without angina pectoris; I48.91 Unspecified atrial fibrillation; I50.9 Heart failure, unspecified; Z79.899 Other long term (current) drug therapy; W19.XXXA Unspecified fall, initial encounter; Y93.89 Activity, other specified; Y92.89 Other specified places as the place of occurrence of the external cause; Y99.8 Other external cause status
CPT/HCPCS: 36415; 74176; 80048; 81001; 82948; 83735; 84484; 85025; 93005; 99285; J7030; 85008

== ENCOUNTER 2025-08-24 15:50 | Emergency (ER) | payer MEDICARE ==
[~2025-08-24] VITALS: Ht 165.1 cm; Wt 71.8 kg
[~2025-08-24 15:50] MED LIST changes: -FURO-150 PO; -POTA-207 PO
[2025-08-24 16:07] VITALS: TEMP 97.7
[2025-08-24] MEDS ORDERED: AMOX-117 PO (17:32)
--- NOTE | 2025-08-24 17:32 | Physician Documentation ---
History of Present Illness ~ Chief Complaint: Bite-animal Stated Complaint: DOG BITE Time Seen by MD: 16:45 Primary Medical Doctor: Horacio Singer COREMAKER MACHINE HPI This is a 80-year-old female who presents with a dog bite to her right hand, patient was bit this morning by her nieces dog, patient reports full range of motion in the hand and no numbness to the hand. Patient reports the wound was cleaned by a family member prior to come in the hospital. Patient reports unknown last Tdap. Patient reports no other acute symptoms or concerns. Tetanus within 5 years?: Yes Medication Reconciliation Allergies: Coded Allergies: No Known Allergies (Unverified , 08/24/25) Scheduled Amox Tr/Potassium Clavulanate (Augmentin 875-125 Tablet), 1 TAB PO Q12H Apixaban (Eliquis), 2.5 MG PO BID Duloxetine HCl (Cymbalta), 1 CAP PO DAILY, (Reported) Empagliflozin (Jardiance), 1 TAB PO DAILY, (Reported) Ferrous Sulfate (Ferrous Sulfate), 1 TAB PO Q12H Metoprolol Tartrate (Metoprolol Tartrate), 25 MG PO BID Pantoprazole Sodium (Pantoprazole Sodium), 1 TAB PO BID Primidone (Mysoline), 0.5 TAB PO DAILY, (Reported) Rosuvastatin Calcium (Rosuvastatin Calcium), 1 TAB PO DAILY, (Reported) Scheduled PRN Ondansetron HCl (Ondansetron HCl), 1 TAB SL DAILY PRN for nausea/vomiting, (Reported) Past Medical History Past Medical History: No Pertinent History, Coronary Artery Disease, High Cholesterol, Hypertension, Myocardial Infarction, Diabetes Past Surgical History: noncontributory Patient History: (CAD) Coronary arteriosclerosis FATHER, , Age: 70, Cause: Coma MOTHER, , Age: 91, Cause: Old age sibling, , Age: 61 (DM Type 2) Diabetes mellitus type 2 FATHER, , Age: 70, Cause: Coma Benign essential tremor FATHER, , Age: 70, Cause: Coma Pacemaker sibling Alcohol Use: None Drug Use: none Review of Systems ROS As stated above in the HPI, otherwise all systems are reviewed and negative. Physical Exam Vital Signs: Temperature: 97.7, Source: Temporal, Heart Rate: 120, Respiratory Rate: 18, BP: 136/76, Pulse Oximetry: 99, Weight: 71.800 Oxygen Flow Rate: 0 Physical Exam VITALS: Reviewed and as above. GENERAL: Alert, nontoxic appearing, no apparent distress. RESPIRATORY: No increased work of breathing, no respiratory distress, speaking in full clear sentences CV: Brisk capillary refill to all fingers of right hand MUSCULOSKELETAL: No swelling to right hand, ROM intact in right hand SKIN: Skin of webspace between 1st finger and 2nd finger to right hand small shallow triangular laceration less than 1 cm, dorsal aspect of right hand at base of 5th finger small shallow laceration. NEURO: Sensation intact in all fingers of right hand Progress Results/Orders Results/Orders Orders - SUBHA BRASWELL Wound Care Orders (08/24/25 17:06) Completed Orders - SUBHA BRASWELL Tetanus/Pertuss/Diph Acell/Pf (Boostrix (08/24/25 17:10) Medications Received in ER Medications (Trade) Dose Ordered Sig/Tiffanie Route PRN Reason Start Time Stop Time Status Last Admin Dose Admin (Boostrix vaccine syringe) 0.5 ml ONCE ONCE IMVAC 08/24/25 17:10 08/24/25 17:11 DC 08/24/25 18:02 0.5 ML Vital Signs 08/24/25 08/24/25 16:07 18:25 Temp 97.7 Pulse 120 78 Resp 18 18 B/P (MAP) 136/76 156/102 Pulse Ox 99 92 O2 Flow Rate 0 Medical Decision Making Additional information obtaine: family Findings This 80-year-old female presented with two small lacerations to hand caused by dog bite earlier in the day, the wounds were irrigated prior to arrival in the dog is known to the patient. As the dog is known to the patient rabies prophylaxis is not indicated. Tdap was updated. Wounds irrigated by tech staff. Was reassuring wounds were shallow and not amenable to closure, no ev idence of underlying deep tissue damage and no evidence of retained foreign body. Patient otherwise well-appearing and appropriate for outpatient follow up, discharged on course of oral antibiotics. Differential Dx:Considerations: Include: Abrasion, Cellulitis, Contusion, Fracture, Laceration, Neurovascular injury, Punture wound, Retained foreign body Departure Time of Disposition: 17:31 Disposition: 01 HOME / SELF CARE / HOMELESS Impression: Primary Impression: Dog bite Qualified Codes: W54.0XXA - Bitten by dog, initial encounter Condition: Improved Discharge Instructions: Animal Bite, Adult Additional Instructions: Keep the areas clean dry and covered, please take the antibiotics as prescribed. Please follow up with your primary care provider in the next few days. Please return to the emergency department for any new or worsening concerning symptoms. Referrals: NO PRIMARY CARE PROVIDER (PCP) Prescriptions Amox Tr/Potassium Clavulanate (Augmentin 875-125 Tablet) 1 Each Tablet 1 TAB PO Q12H for 7 Days, #14 TAB Prov: SUBHA BRASWELL 08/24/25 Education Educated: Patient, Family Educated regarding: diagnosis, treatment, prognosis, need for follow up Signature Scribe Signature: No scribe Attestation: The note accurately reflects work and decisions made by me.REJI Lang 08/24/25 19:26 Parts of this note were created using [employer] voice recognition software program. While efforts were made to correct any mistakes made by this voice recognition software program, nonsensical phrases may remain in this note. In addition, there may be errors and syntax, grammar, content and spelling. SUBHA BRASWELL Aug 24, 2025 17:32
[2025-08-24] MEDS: TETanus/Pertussis (Acell)/Diphther VAC/PF (Tdap-Adult) 0.5ml syringe IMVAC ONE (18:02)
[2025-08-24 18:25] VITALS: BP 156/102; PULSE 78; RESP 18; O2SAT 92
== END 2025-08-24 18:26 | disposition home or self-care (01) ==
LOC: ER 15:50
DX: S61.451A Open bite of right hand, initial encounter (principal); I25.10 Atherosclerotic heart disease of native coronary artery without angina pectoris; I25.2 Old myocardial infarction; E11.9 Type 2 diabetes mellitus without complications; Z95.0 Presence of cardiac pacemaker; Z79.899 Other long term (current) drug therapy; W54.0XXA Bitten by dog, initial encounter; Y93.89 Activity, other specified; Y92.89 Other specified places as the place of occurrence of the external cause; Y99.8 Other external cause status
CPT/HCPCS: 90715; 99283; A6446; G0008; 90471

== ENCOUNTER 2025-10-13 07:51 | Emergency (ER) | payer MEDICARE ==
[~2025-10-13] VITALS: Ht 165.1 cm; Wt 78.5 kg
--- NOTE | 2025-10-13 08:17 | Physician Documentation ---
Addendum CHIEF COMPLAINT/HPI: The patient is a 80-year-old female who takes Eliquis for atrial fibrillation and presents today with ecchymosis of the left lower leg laterally. She reports that she has been cleaning a lot but does not remember any discrete injury to the area. REVIEW OF SYSTEMS: Constitutional: Denies chills, fatigue, fever, weight gain or weight loss. HEENT: Denies hearing loss, sinus pressure or visual changes. Respiratory: Denies cough, shortness of breath or wheezing. Cardiovascular: Denies chest pain, pain while walking (claudication), edema or palpitations. Gastrointestinal: Denies abdominal pain, blood in stool, constipation, diarrhea, heartburn, loss of appetite, nausea or vomiting. Genitourinary: Denies painful urination (dysuria), excessive amount of urine (polyuria) or urinary frequency. Metabolic/Endocrine: Denies cold intolerance, heat intolerance, excessive thirst (polydipsia) or excessive hunger (polyphagia). Neurological: Denies dizziness, extremity numbness, extremity weakness, headaches, seizures or tremors. Psychiatric: Denies anxiety or depression. Integumentary: Denies breast discharge, breast lump, hives, mole change(s), rash or skin lesion. Musculoskeletal: Denies back pain, joint pain, joint swelling or neck pain. Hematologic: Denies easily bleeding, easily bruises, lymphedema or issues with blood clots. Immunologic: Denies food allergies or seasonal allergies. PHYSICAL EXAMINATION: Vitals and nursing note reviewed. Constitutional: General: Patient is awake, alert, oriented x 4 in no acute distress and well appearing. Speech is clear and lucid. Appearance: Normal appearance. Patient is not ill-appearing, toxic-appearing or diaphoretic. HENT: Head: Normocephalic and atraumatic. Mouth: Mucous membranes are moist. Pharynx: Oropharynx is clear. Eyes: General: No scleral icterus. Extraocular Movements: Extraocular movements intact. Pupils: Pupils are equal, round, and reactive to light. Neck: Supple, no Kernig or Brudzinski sign. Cardiovascular: Rate and Rhythm: Normal rate and regular rhythm. Heart sounds: No murmur heard. Pulmonary: Effort: No respiratory distress. Breath sounds: No wheezing, rhonchi or rales. Abdominal: General: There is no distension. Palpations: There is no fluid wave, hepatomegaly or mass. Tenderness: There is no abdominal tenderness. There is no guarding. Musculoskeletal: General: There is a nontender bruise of the left lower leg laterally. Neurovascular is intact. Neurological: Mental Status: Patient is alert. MEDICAL DECISION MAKING: This patient apparently incurred a bruise of her left lower leg accidentally. She is on Eliquis which I would not discontinue. We are going to wrap the area in an Wojceich bandage and I have advised her to be extra careful working and cleaning around the house. I have asked her to elevate the extremity, as well. Departure Disposition: HOME / SELF CARE / HOMELESS Impression: Primary Impression: Superficial bruising of lower leg Condition: Stable Additional Instructions: You have been evaluated for a bruise involving her left lower extremity. Wear the Wojciech bandage over the next few days. Elevate your leg as much as possible, above the level of your heart by laying down and placing your leg on several pillows. It is important to see your doctor or primary care provider. Emergency care may be incomplete without proper follow-up. Symptoms sometimes change or new symptoms might arise after you leave the emergency department. It is important that you call your doctor if you become worse in any way, or return to the emergency department. You are strongly urged to follow-up with your physician to assure complete and thorough care. Please call your doctor's office today, and informed them that you were seen in the emergency department, and that you need to be seen immediately for close follow-up. If you do not have a primary care doctor we encourage you to proactively seek a local physician for close follow-up. Consider local clinics, [facility], or local [facility]. Prior to discharge we spoke at length concerning symptoms that would merit reevaluation, but please return to the emergency department for any symptoms that are concerning to you, and we will be happy to continue your evaluation and treatment. Please note you can always return to the emergency department if you are having difficulty coordinating close follow-up. If medications were prescribed, you should fill them at your local pharmacy immediately and take only as prescribed. Bring your new medications to your doctors follow-up visit to discuss any changes that would be necessary. Please check [facility] for any results you did not receive in the Emergency Department: often we are unable to get all your tests back before you leave, and these tests need to be reviewed by your PCP and yourself. You can also call Medical Records if you are unable to access the internet to see MyChart. Return to the emergency department immediately for worsening chest pain, difficulty breathing, sweating, or other concerning emergent symptoms. ARMANI GUILLEN MD Oct 13, 2025 08:17
[2025-10-13 08:23] VITALS: BP 122/81; PULSE 96; RESP 20; O2SAT 99
[2025-10-13 08:53] VITALS: TEMP 97.8
== END 2025-10-13 08:57 | disposition home or self-care (01) ==
LOC: ER 07:51
DX: S80.12XA Contusion of left lower leg, initial encounter (principal); I48.91 Unspecified atrial fibrillation; X58.XXXA Exposure to other specified factors, initial encounter; Y93.89 Activity, other specified; Y92.89 Other specified places as the place of occurrence of the external cause; Y99.8 Other external cause status
CPT/HCPCS: 99282; A6449

== ENCOUNTER 2025-10-18 07:35 | Day surgery (SDC) | payer MEDICARE ==
[2025-10-17 12:25] LABS: MEAN PLATELET VOLUME 8.0 FL (7.4-10.4); RED CELL DISTRIBUTION WIDTH 15.0 % (11.5-14.5)
[2025-10-17 12:33] LABS: CREATININE 2.90 MG/DL (0.40-0.90); TOTAL CARBON DIOXIDE 29.1 MMOL/L (24-32); eGFR 16 ML/MIN
[2025-10-17 12:36] LABS: INR 1.6 INR
[2025-10-18] VITALS (7 sets, daily range): BP systolic 94–130; BP diastolic 61–82; PULSE 72–87; RESP 14–15; TEMP 98.2; O2SAT 94–96
[~2025-10-18] VITALS: Ht 152.4 cm; Wt 77.6 kg
--- NOTE | 2025-10-18 08:27 | ELECTROCARDIOGRAPH REPORT ---
[facility] Test Date: 2025-10-18 Test Time: 08:25:49 Pat Name: DANIELLE OBREGON Department: [facility] Patient ID: 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 Reading MD: Dr. Cassandra Watt Measurements Intervals [place] Rate: 96 P: 0 CO: 0 QRS: 59 QRSD: 84 T: 87 QT: 406 QTc: 514 Interpretive Statements Atrial fibrillation Nonspecific T abnormalities, lateral leads Prolonged QT interval Electronically Signed On 10-18-2025 16:31:[address] Cassandra Watt Please click the below link to view image of tracing.
[2025-10-18] MEDS ORDERED: morphine 10mg/ml inj. IV ONE (08:45)
[2025-10-18] MEDS ORDERED: normal saline 1000ml 1,000 ML IV SCH (08:45)
[2025-10-18] MEDS ORDERED: amiodarone 150mg/dext, iso-os 100 ML IV ONE (08:45)
[2025-10-18] MEDS ORDERED: atropine 0.1mg/ml 10ml syringe IV ONE (08:45)
[2025-10-18] MEDS ORDERED: MIDAZolam 1mg/ml 10ml vial IV ONE (08:45)
[2025-10-18] MEDS ORDERED: amiodarone 50MG/ML inj IV ONE (08:49)
[2025-10-18] MEDS ORDERED: midazolam 1 mg/ML 2ml injection ONE (08:50)
[2025-10-18] MEDS ORDERED: fentaNYL/PF 50MCG/1 ML 2ML syringe ONE (08:50)
[2025-10-18] MEDS ORDERED: atropine 0.1mg/ml 10ml syringe ONE (08:50)
[2025-10-18] MEDS ORDERED: CLOP75TA34 PO (09:08)
[2025-10-18] MEDS ORDERED: WARF4TAB69 PO (09:09)
[2025-10-18] MEDS ORDERED: PANT40SU2 PO (09:12)
[2025-10-18] MEDS ORDERED: FAMO40TA73 PO (09:13)
[2025-10-18] MEDS ORDERED: DONE10TA44 PO (09:14)
[2025-10-18] MEDS ORDERED: DRON400T6 PO (09:14)
[2025-10-18] MEDS ORDERED: MEMA10TA22 PO (09:17)
[2025-10-18] MEDS ORDERED: DAPA10TA PO (09:17)
[2025-10-18] MEDS ORDERED: FURO20TA4 PO (09:17)
[2025-10-18] MEDS ORDERED: POTA-188 PO (09:17)
[2025-10-18] MEDS ORDERED: SITA25TA3 PO (09:17)
[2025-10-18] MEDS ORDERED: TRAZ-251 PO (09:17)
[2025-10-18] MEDS ORDERED: GLIM4TAB7 PO (09:18)
[2025-10-18] MEDS ORDERED: SENN-360 PO (09:19)
--- NOTE | 2025-10-18 10:22 | ELECTROCARDIOGRAPH REPORT ---
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 Cassandra Watt Measurements Intervals [place] Rate: 70 P: 8 [place]: 144 QRS: 38 QRSD: 88 T: 62 QT: 424 QTc: 458 Interpretive Statements Sinus rhythm Atrial premature complexes Borderline T wave abnormalities Electronically Signed On 10-18-2025 16:31:[address] Cassandra Watt Please click the below link to view image of tracing.
--- NOTE | 2025-10-18 10:23 | ELECTROCARDIOGRAPH REPORT ---
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 Cassandra Watt Measurements Intervals [place] Rate: 73 P: 56 [place]: 142 QRS: 37 QRSD: 88 T: 64 QT: 447 QTc: 493 Interpretive Statements Sinus arrhythmia Borderline T wave abnormalities Borderline prolonged QT interval Electronically Signed On 10-18-2025 16:31:[address] Cassandra Watt Please click the below link to view image of tracing.
--- NOTE | 2025-10-18 10:45 | CARDIOLOGY REPORT ---
DATE OF SERVICE: 10/18/2025 DICTATING PHYSICIAN: MIRNA Garrett MD PRIMARY PROVIDER: Zay Hernández NP. PURCHASING ENGINEER: MIRNA Garrett MD. INDICATION: A 80-year-old postmenopausal female with diabetes, hypertension, hyperlipidemia, sleep apnea, essential tremor, CAD, history of atrial fibrillation, history of severe mitral regurgitation. She has been referred for mitral valve per Dr. Trae Denson in [facility] as well. The patient also has CAD and prior history of coronary artery stenting and diastolic heart failure and thoracic aortic aneurysm of 4.5 cm diameter and hypertension, hyperlipidemia, cervical spine disorder. The patient's history of atrial fibrillation dates back to 06/2024 when she was hospitalized at [facility]. At that time, she was in AFib. She was started on amiodarone and underwent successful cardioversion on 07/2024, and because of her tremor, amiodarone was changed to dronedarone, and she also had a neurological evaluation by Dr. Iniguez, [facility], and the patient is on propranolol for her tremors. The patient was noted to be in AFib since 09/07/2025. After discussing risks, benefits, alternative options, the patient prefers to proceed with coronary angiography. I decided to proceed with electrical cardioversion. Risks, benefits and alternative options discussed. Informed consent obtained. DESCRIPTION OF PROCEDURE: Anterior and posterior pads were used. Using 200 joules biphasic synchronized electrical shock given and did not convert. She was given 150 mg of amiodarone. After that, she converted to sinus rhythm. IMPRESSION: A 80-year-old female with paroxysmal atrial fibrillation, which had become persistent, underwent electrical cardioversion to normal sinus rhythm. RECOMMENDATIONS: * Continued propranolol and dronedarone 400 mg p.o. b.i.d. * The patient is on warfarin. Keep INR within 2-3. * The patient also has CKD. * Some of her ankle swelling is a combination of her diastolic and CKD. * The patient has an upcoming appointment with a education program manager. * Recommend diet, weight loss, and exercise program. * Follow up with PMD for titration of diuretics as required. MIRNA Garrett MD TID: [id number] RECEIPT: [id number] BC/SUM cc: Zay Hernández [employer]
[2025-10-18] MEDS: potassium Cl 20 mEq SR tablet PO STA (11:01)
== END 2025-10-18 11:30 | disposition home or self-care (01) ==
LOC: SSTAY O 07:35
PROVIDERS: ATTEND Internal Medicine Cardiovascular Disease
DX: I48.0 Paroxysmal atrial fibrillation (principal); I49.1 Atrial premature depolarization; I11.0 Hypertensive heart disease with heart failure; I50.32 Chronic diastolic (congestive) heart failure; I25.10 Atherosclerotic heart disease of native coronary artery without angina pectoris; I34.0 Nonrheumatic mitral (valve) insufficiency; E11.9 Type 2 diabetes mellitus without complications; E78.5 Hyperlipidemia, unspecified; G47.30 Sleep apnea, unspecified; Z79.02 Long term (current) use of antithrombotics/antiplatelets; R94.31 Abnormal electrocardiogram [ECG] [EKG]; Z79.899 Other long term (current) drug therapy; Z79.01 Long term (current) use of anticoagulants; Z98.51 Tubal ligation status; Z86.79 Personal history of other diseases of the circulatory system; Z95.5 Presence of coronary angioplasty implant and graft; Z78.0 Asymptomatic menopausal state
CPT/HCPCS: 36415; 80048; 85025; 85610; 92960; 93005; 99152; A4620; J0282; J0461; J2250; J3010; J7030; 99153